=== PATIENT | female | born 1960 | race Caucasian/White ===

== ENCOUNTER → 2018-06-25 | Outpatient (REF) ==
--- NOTE | 2018-06-26 02:02 | REP ---
Clinical: Pain . Technique: AP, lateral, flexion/extension, bilateral oblique, and open-mouth views. Findings: Alignment and lordosis is maintained. There is no evidence for acute fracture / compression injury or subluxation. Lateral view demonstrates mild age-related changes include very subtle increase sclerosis and minimal disc space narrowing primarily at C5-6. Open mouth view demonstrates normal C1-C2 articulation and odontoid process. Impression: Very minimal degenerative changes. Electronically Signed by Elmo Fofana MD 06/26/2018 01:53 A
--- NOTE | 2018-06-26 02:27 | REP ---
Clinical: Pain and disability. Technique: AP, lateral, coned-down views of the lumbosacral spine. Findings: Alignment and lordosis maintained. No acute fracture / compression injury or subluxation. Moderate multilevel degenerative changes include endplate sclerosis, anterior spurring, hypertrophic facet changes. Disc space narrowing at L5-S1 noted. Impression: Moderate multilevel spondylosis. Electronically Signed by Elmo Fofana MD 06/26/2018 02:18 A
== END ==
LOC: M SMT 13:21
PROVIDERS: ATTEND Internal Medicine
DX: M43.09 Spondylolysis, multiple sites in spine (principal)

== ENCOUNTER → 2018-10-29 | Outpatient (REF) ==
--- NOTE | 2018-10-30 02:35 | REP ---
Clinical: Pain and disability. Technique: AP, lateral, bilateral oblique views of the right hand. Findings: Evidence for prior fixation involving the first and second metacarpal bones. Underlying generalized mild arthritic degenerative changes include subtle periarticular sclerosis at the interphalangeal joints as well as subtle cortical irregularity with subchondral sclerosis and joint space narrowing involving the carpometacarpal joints and radiocarpal joint. Impression: Mild generalized arthritic changes. Evidence for prior fixation. Electronically Signed by Elmo Fofana MD 10/30/2018 02:26 A
== END ==
LOC: M SMT 13:51
PROVIDERS: ATTEND Internal Medicine
DX: M51.36 Other intervertebral disc degeneration, lumbar region (principal)

== ENCOUNTER 2024-05-20 08:29 | Day surgery (SDC) | payer MEDICARE ==
[~2024-05-20] VITALS: Ht 154.9 cm; Wt 89.7 kg
[~2024-05-20 08:29] MED LIST: AMIT50TA PO; AMLO1TAB24 PO; ATOR80TA59 PO; BASA100I SQ; FLUTISP; GABA-1172 PO; HYDR-3490 PO; JARD1TAB PO; LEVO112T2 PO; METF500T13 PO; METO100T5 PO; MIDAZOLAM INJ 2MG/2ML VIAL As Ordered ONE; PANT20TA6 PO; PHENYLEPHRINE 10% OPHTH SOL 5ML OS PRN; RANO10002 PO; ROPI4TAB PO; SEMA2PEN; TIZA2TA PO
[2024-05-20] MEDS: TROPICAMIDE 1% OPHTH SOLN 15ML OS SCH (09:20)
[2024-05-20] MEDS: LIDOCAINE 3.5 % 1ML OPHTH TOPICAL GEL OU ONE (09:20)
[2024-05-20] MEDS: OFLOXACIN 0.3 % (OCUFLOX) OPTH SOL 5ML OS ONE (09:20)
[2024-05-20] MEDS: CYCLOPENTOLATE 1% OPHTH SOLN 2ML BTL OS SCH (09:20)
[2024-05-20] MEDS: PHENYLEPHRINE 2.5% OPHTH SOL 2ML OS SCH (09:20)
[2024-05-20] MEDS: BSS IRRIG/VANCO(10MG)/TOBRA(5MG)/EPINEPH(1:1000-0.5CC)500ML BAG-ORONLY As Ordered ONE (10:39)
[2024-05-20] MEDS: CEFUROXIME 1MG/0.1ML INTRACAMERAL INJ As Ordered ONE (10:39)
[2024-05-20] MEDS: LIDOCAINE 1% SDV 5ML VIAL As Ordered ONE (10:39)
[2024-05-20] MEDS ORDERED: PROVISC 10 MG/ML 0.85ML SYRINGE As Ordered ONE (10:43)
[2024-05-20 10:58] VITALS: BP 128/63; TEMP 97.4; O2SAT 97
== END 2024-05-20 11:23 | disposition home or self-care (01) ==
LOC: M SDC 08:29
PROVIDERS: ATTEND Ophthalmology
DX: H25.12 Age-related nuclear cataract, left eye (principal); I25.10 Atherosclerotic heart disease of native coronary artery without angina pectoris; I25.2 Old myocardial infarction; I10 Essential (primary) hypertension; E11.9 Type 2 diabetes mellitus without complications; E03.9 Hypothyroidism, unspecified; R00.2 Palpitations; G47.33 Obstructive sleep apnea (adult) (pediatric); E78.00 Pure hypercholesterolemia, unspecified; G25.81 Restless legs syndrome; Z79.84 Long term (current) use of oral hypoglycemic drugs; Z79.899 Other long term (current) drug therapy; Z79.4 Long term (current) use of insulin; Z79.85 Long-term (current) use of injectable non-insulin antidiabetic drugs; Z79.890 Hormone replacement therapy; Z95.5 Presence of coronary angioplasty implant and graft; Z88.0 Allergy status to penicillin; Z88.1 Allergy status to other antibiotic agents; Z88.8 Allergy status to other drugs, medicaments and biological substances; Z90.49 Acquired absence of other specified parts of digestive tract
CPT/HCPCS: 66984; 92015; A4649; J0697; J2250; V2788

== ENCOUNTER 2024-05-27 07:25 | Day surgery (SDC) | payer MEDICARE ==
[~2024-05-27] VITALS: Ht 154.9 cm; Wt 87.9 kg
[~2024-05-27 07:25] MED LIST changes: +CYCLOPENTOLATE 1% OPHTH SOLN 2ML BTL OD SCH; +LIDOCAINE 3.5 % 1ML OPHTH TOPICAL GEL OU ONE; +OFLOXACIN 0.3 % (OCUFLOX) OPTH SOL 5ML OD ONE; +PHENYLEPHRINE 10% OPHTH SOL 5ML OD PRN; -PHENYLEPHRINE 10% OPHTH SOL 5ML OS PRN; +PHENYLEPHRINE 2.5% OPHTH SOL 2ML OD SCH; +TROPICAMIDE 1% OPHTH SOLN 15ML OD SCH; +fentaNYL 100 MCG/2 ML INJECTION As Ordered ONE
[2024-05-27] MEDS: BSS IRRIG/VANCO(10MG)/TOBRA(5MG)/EPINEPH(1:1000-0.5CC)500ML BAG-ORONLY As Ordered ONE (09:41)
[2024-05-27] MEDS: LIDOCAINE 1% SDV 5ML VIAL As Ordered ONE (09:41)
[2024-05-27] MEDS: CEFUROXIME 1MG/0.1ML INTRACAMERAL INJ As Ordered ONE (09:42)
[2024-05-27] MEDS: CARBACHOL 0.01% OPHTH SOLN 1.5ML VIAL As Ordered ONE (09:49)
[2024-05-27 09:55] VITALS: BP 129/75; TEMP 96.4; O2SAT 94
== END 2024-05-27 10:10 | disposition home or self-care (01) ==
LOC: M SDC 07:25
PROVIDERS: ATTEND Ophthalmology
DX: H25.11 Age-related nuclear cataract, right eye (principal); I25.10 Atherosclerotic heart disease of native coronary artery without angina pectoris; I10 Essential (primary) hypertension; Z98.61 Coronary angioplasty status; R60.9 Edema, unspecified; E11.9 Type 2 diabetes mellitus without complications; E03.9 Hypothyroidism, unspecified; K21.9 Gastro-esophageal reflux disease without esophagitis; Z88.0 Allergy status to penicillin; Z88.8 Allergy status to other drugs, medicaments and biological substances; Z88.1 Allergy status to other antibiotic agents; Z79.899 Other long term (current) drug therapy; Z79.84 Long term (current) use of oral hypoglycemic drugs
CPT/HCPCS: 66984; 92015; J0697; J2250; J3010; V2632